=== PATIENT | male | born 1990 | race Caucasian/White ===

== ENCOUNTER 2019-06-20 21:18 | Emergency (ER) | payer SELFPAY ==
[~2019-06-20] VITALS: Ht 171.4 cm; Wt 75.0 kg
[2019-06-20] MEDS ORDERED: FLUORESCEIN SODIUM 1 MG STRIP OD ONE (22:30)
[2019-06-20] MEDS ORDERED: PROPARACAINE HCL 0.5% 15 ML OPHTHALMIC SOLUTION OD ONE (22:30)
[2019-06-20 23:35] VITALS: BP 119/68
== END 2019-06-20 23:39 | disposition home or self-care (01) ==
LOC: EMS 21:21
DX: S00.251A Superficial foreign body of right eyelid and periocular area, initial encounter (principal); S00.252A Superficial foreign body of left eyelid and periocular area, initial encounter; W22.8XXA Striking against or struck by other objects, initial encounter; Y93.89 Activity, other specified; Y92.89 Other specified places as the place of occurrence of the external cause; Y99.8 Other external cause status

== ENCOUNTER 2020-02-22 16:41 | Emergency (ER) | payer SELFPAY ==
[~2020-02-22] VITALS: Ht 172.7 cm; Wt 80.0 kg
[2020-02-22 16:54] VITALS: BP 119/67
== END 2020-02-22 17:28 | disposition left against medical advice (07) ==
LOC: EMS 16:41
DX: R07.9 Chest pain, unspecified (principal); Z53.21 Procedure and treatment not carried out due to patient leaving prior to being seen by health care provider